=== PATIENT | female | born 1960 | race Caucasian/White ===

== ENCOUNTER → 2020-02-01 07:19 | Outpatient (CLI) | payer OTHER, SELFPAY ==
[2020-02-01 08:52] LABS: Alanine Aminotransferase 18 IU/L (<35); Albumin 4.3 g/dL (3.5-5.0); Albumin Globulin Ratio 1.7 (1.0-2.8); Alkaline Phosphatase 105 U/L (38-126); Aspartate Aminotransferase 25 IU/L (14-36); BUN Creatinine Ratio 26.2 (6-22); Bilirubin Total 0.5 mg/dL (0.2-1.3); Blood Urea Nitrogen 22 mg/dL (7-17); Calcium 9.7 mg/dL (8.4-10.2); Carbon Dioxide 29 mmol/L (22-32); Chloride 106 mmol/L (98-107); Cholesterol 227 mg/dL (140-199); Estimated Glomerular Filt Rate > 60.0 mL/min (>60); Globulin 2.5 g/dL (1.7-4.1); Glucose 82 mg/dL (80-110); HDL Cholesterol 86 mg/dL (40-60); HEMOLYSIS < 15 (0-50); LDL Cholesterol Calculated 130 mg/dL (<100); Sodium 140 mmol/L (137-145); Total Protein 6.8 g/dL (6.3-8.2); Triglycerides 56 mg/dL (35-150)
[2020-02-01 08:56] LABS: Potassium 5.4 mmol/L (3.4-5.1)
[2020-02-01 09:25] LABS: TSH w/ Reflex to FT4 2.19 uIU/mL (0.47-4.68)
[2020-02-02 08:34] LABS: Var-Zoster Immunity Screen 2969 index (Immune >165)
== END ==
PROVIDERS: Family Provider Internal Medicine; PCP Internal Medicine; Referring Provider Internal Medicine; Visit Provider Internal Medicine
DX: M17.0 Bilateral primary osteoarthritis of knee (principal); Z13.220 Encounter for screening for lipoid disorders; Z86.39 Personal history of other endocrine, nutritional and metabolic disease; R21 Rash and other nonspecific skin eruption
CPT/HCPCS: 36415; 80053; 80061; 84443; 86787

== ENCOUNTER → 2020-03-15 12:08 | Outpatient (CLI) | payer OTHER, SELFPAY ==
[2020-03-15 12:58] LABS: Add Manual Diff / Slide Review NO; Basophils Absolute Auto 100 /uL (0-100); Eosinophils Absolute Auto 200 /uL (0-450); Eosinophils Percent Auto 2.8 % (2-4); Hematocrit 42.5 % (36-46); Hemoglobin 14.3 g/dL (12.0-16.0); Lymphocytes Absolute Auto 2300 /uL (1100-4500); Mean Corpuscular HGB Conc 33.7 % (30-36); Mean Corpuscular Hemoglobin 31.4 PG (26-34); Mean Corpuscular Volume 93.3 fL (80-100); Monocytes Absolute Auto 500 /uL (0-900); Monocytes Percent Auto 9.1 % (3-14); Neutrophils Absolute Auto 2900 /uL (1500-7000); Neutrophils Percent Auto 48.1 % (50-75); Platelet Count 328 X10^3/uL (150-400); Red Blood Cell Count 4.55 X10^6/uL (4.0-5.2); Red Cell Distribution Width 13.7 % (11.6-14.8)
[2020-03-15 13:33] LABS: Carbon Dioxide 28 mmol/L (22-32); Chloride 105 mmol/L (98-107); HEMOLYSIS < 15 (0-50); Potassium 4.3 mmol/L (3.4-5.1); Sodium 139 mmol/L (137-145)
== END ==
PROVIDERS: Family Provider Internal Medicine; PCP Internal Medicine; Referring Provider Orthopaedic Surgery; Visit Provider Orthopaedic Surgery
DX: Z01.818 Encounter for other preprocedural examination (principal); Z01.812 Encounter for preprocedural laboratory examination
CPT/HCPCS: 36415; 80051; 85025; 93005

== ENCOUNTER → 2020-04-07 08:50 | Outpatient (CLI) | payer OTHER, SELFPAY ==
[2020-04-09 01:05] LABS: COVID19 Sendout Not Detected (Not Detect)
== END ==
PROVIDERS: Family Provider Internal Medicine; PCP Internal Medicine; Visit Provider Physician Assistant
DX: Z11.59 Encounter for screening for other viral diseases (principal)
CPT/HCPCS: 87635

== ENCOUNTER 2020-04-10 12:51 | Day surgery (SDC) | payer OTHER, SELFPAY ==
[2020-04-02 08:50] VITALS: BMI 21.8
[2020-04-10] VITALS (13 sets, daily range): BP systolic 100–144; BP diastolic 55–78; PULSE 62–76; RESP 13–18; TEMP 35.9–37.1; O2SAT 95–100; BMI 21.8
--- NOTE | 2020-04-10 08:00 | DI.RAD.S_ITS ---
PROCEDURE: XR KNEE LT 1TO2V INDICATIONS: TKA. TECHNIQUE: Two view(s) of the knee acquired. COMPARISON: None. FINDINGS: Bones: Patient is status post knee joint arthroplasty. Hardware components are in expected positions. Visualized bony structures are intact. Soft tissues: Overlying postoperative changes are noted. IMPRESSION: Left total knee arthroplasty, normal alignment established. Dictated by: Francisco Velasquez M.D. on 04/10/2020 at 17:47 Approved by: Francisco Velasquez M.D. on 04/10/2020 at 17:47
[2020-04-10] MEDS: LACTATED RINGERS 1,000 ML 42 ML IV ×2 (13:20→16:46)
[2020-04-10] MEDS: PREGABALIN 75 MG CAPSULE PO (13:20)
[2020-04-10] MEDS: ACETAMINOPHEN 325 MG TABLET 975 MG PO (13:20)
[2020-04-10] MEDS: CELECOXIB 200 MG CAPSULE PO (13:20)
--- NOTE | 2020-04-10 14:12 | PM.PREOP ---
Pre-operative Note COVID-19 COVID-19 status: Negative Result date/Date tested (Pos, Neg/Pending): 04/08/20 Interval Note History & Physical reviewed/Exam performed by Physician: Yes Changes to H&P: No
--- NOTE | 2020-04-10 14:12 | PM.OP.1 ---
Operative Date/Time/Diagnoses Date of procedure: 04/10/20 Time of procedure: 17:08 Pre-op diagnosis: Left knee osteoarthritis Post-op diagnosis: same Procedure & Clinicians Procedure: Left total knee arthroplasty Same procedure as scheduled: Yes Indications: The patient presents today for total knee arthroplasty after failure of conservative treatment. The nature of the procedure including the risks and benefits, alternatives, postoperative course and expected outcome were discussed and all questions answered. Consent was obtained. Operative site confirmed and marked. Surgeon: Darrel Castañeda [employer] Instructor: Garrick Powers Anesthesia Type: General, Spinal and Local Operative Notes Findings: The patients bone was very soft. The stem was used in the tibia to increase the stability. After the initial cuts in the distal femur and proximal tibia the knee was tight both in flexion and extension. The knee was also tighter laterally. The lateral capsule was released using a pie crust type technique with a 15 blade. The femoral cut was also redone cutting in 7? of valgus instead of 6. This balanced the knee medially and laterally. The knee was tighter in extension than flexion. Another 2 mm was cut both from the distal femur and proximal tibia. This nicely balanced the knee in flexion extension overall but there was still some increased laxity medially both in flexion and extension. Once the components were cemented into place the knee was trialed with both constrained and nonconstrained tibial trays. It was felt that the constrained tray was too tight so the nonconstrained tray was used. The tibia was quite thin and concave. The most minimal cut was made. There is approximately 13 mm of remaining bone thickness. The patellar tracked nicely once the tourniquet was down. Closure Type: primary Specimen(s): none sent Prosthetic devices, grafts, tissues, transplants, or devices: [employer] BCS: 9 femoral component, 6 tibial component with a 16 mm x 100 mm stem, 9 mm BCS polyethylene tray and 32 x 9 mm round patella Applied: implant(s) Estimated Blood Loss (mL): 5 Blood products transfused: none Tourniquet time (min): 91 Procedure in detail: The patient was taken to the operative suite and placed under anesthesia. The patient was given prophylactic antibiotics prior to surgery. [The patient was also given tranexamic acid, 1 g, just prior to surgery for postoperative hemostasis.] The lateral knee was prepped and the joint injected with 20 mL of 1% Lidocaine with epinephrine. The knee was then prepped and draped in usual sterile fashion. The leg was exsanguinated with an Esmarch dressing and the tourniquet raised to [250] torr. A 15 cm anterior incision was made. Next a medial trivector arthrotomy was made. The extensor mechanism was marked to ensure accurate repair. Initial exposing dissection was carried out medially and laterally. The knee was then flexed and the intramedullary femoral guide salvador placed. The distal femoral cut was made in [6]? of valgus at the +[0] position. The femoral size was measured and the appropriate cutting block was then placed and the anterior, posterior and chamfer cuts made. The intramedullary tibial alignment salvador was then placed. The tibial cut was made removing about 10 mm of bone from both the lateral and medial sides. Flexion extension gaps were checked. See balancing in the findings above. The soft tissues were then injected with a combination of 20 mL of half percent Marcaine with epinephrine and 20 mL of Exparel. The trial components were then placed. The knee was then extended and the patellar thickness was measured and a cut made removing a minimal amount of bone as the patella was concave and quite thin. The patella was then sized and drilled. Some excess lateral bone was excised and the patellofemoral ligament released. [The knee went into full extension and flexion beyond 130?]. There was good medial-lateral balance throughout motion. The knee was still somewhat looser medially both in flexion and extension but this was felt to be acceptable with a normal polyethylene tray. Patellar tracking was [excellent]. The trial components were removed and the knee was cleansed with Pulsavac irrigation and dried. The final components were cemented with high viscosity vacuum mixed bone cement with antibiotics. The joint was filled with a dilute Betadine solution. The knee was held in extension and the patellar clamped until the cement was adequately cured. The knee was then irrigated. The extensor mechanism was closed with 5 interrupted #1 Vicryl sutures and a running Quill suture at approximately 90 degrees of flexion. The joint was then injected with a combination of 1 g of tranexamic acid and 20 mL of quarter percent Marcaine with epinephrine. The subcutaneous tissue was closed with 2 0 Vicryl. The skin was closed with absorbable subcuticular sutures and surgical adhesive. An [Aquacel dressing] and Vamsi wrap were then applied. The patient tolerated the procedure well and was returned to recovery room in good condition. Complications: none Post-operative Condition: stable Disposition: PACU Plan for aftercare: [facility] Protocol.
[2020-04-10] MEDS: CLINDAMYCIN 600 MG/50 ML PIGGYBACK 50 MG IV (14:55)
--- NOTE | 2020-04-10 15:23 | SUR.OPER ---
Supine on padded OR bed. Pillow under head, arms secured on padded armboards <90 degree abduction. Safety belt across torso. Non-operative leg secured with tape over blanket over lower leg. Operative leg secured in DeMayo/Casa positioner. Foam padded brace at thigh of operative leg.
[2020-04-10] MEDS: LIDOCAINE 1% W/EPI 20 ML INJ (15:32)
[2020-04-10] MEDS: BUPIVACAINE 0.25% W/ EPI (PF) 20 ML, TRANEXAMIC ACID 1,000 MG, SODIUM CHLORIDE 0.9% 10 ML INJ (15:33)
[2020-04-10] MEDS: BUPIVACAINE 0.25% W/ EPI (PF) 40 ML, BUPIVACAINE LIPOSOME 266 MG, SODIUM CHLORIDE 0.9% ... INJ (15:34)
[2020-04-10] MEDS: SODIUM CHLORIDE IRRIG SOLUTION 250 ML, POVIDONE-IODINE SPONGE STICKS 1 APPLIC IRR (15:35)
--- NOTE | 2020-04-10 17:58 | SUR.PHASEI ---
arrived to PACU sleeping, slept through L Knee x-ray, LLE elevated after x-ray; ice pack on upon arrival. Resp even and regular
[2020-04-10] MEDS: OXYCODONE IR 5 MG TABLET PO ×2 (18:28→21:29)
--- NOTE | 2020-04-10 18:28 | SUR.PHASEI ---
174 late entry Woke up, started talking, drowsy. Denied pain/nausea. Ice chips given. VSS 175 Report given to Jaz Bauman RN in lieu of KEREN Hogan. Apple juice given. Stated that she is aware of her knee but that it is not in pain. 1083 to room 215. Pt transferred herself into the bed. Began complaining of pain in the elevator, stated that it was a 3/10. Coming out of the elevator, she stated that it 'is heading towards a 4.' Bed down and locked, call light within reach, SCDs on. Beverage and snack given to her by her . RN informed that she will need to be medicated when possible. Pt awake/drowsy, eyes wide open, talking/oriented. Clothing bag to the room.
[2020-04-10] MEDS: HYDROMORPHONE 0.5 MG INJ 0.2 MG IV ×2 (18:33→19:52)
--- NOTE | 2020-04-10 18:56 | PC.NURSE ---
1809- Pt to room from PACU. Able to move self over from stretcher to bed. Pain increased with activity. Rating 5 of 10. Restless in bed, grabbing siderails. Stating that she thought she was suppose to get a pain cocktail in her knee. States it is not working. Discussed pain control. Pt continues to report pain 5 and climbing. One percolone given. Continues to be restless. 0.2 mg Dilaudid IVP. Attempt to orient to room and routine, will need reinforcement when pain is better controlled.
[2020-04-10] MEDS: DOCUSATE 100 MG CAPSULE PO (21:29)
[2020-04-10] MEDS: IBUPROFEN 400 MG TABLET PO (21:29)
[2020-04-10] MEDS: ASPIRIN EC 81 MG TABLET PO (21:29)
[2020-04-10] MEDS: ACETAMINOPHEN 325 MG TABLET 650 MG PO (21:29)
[2020-04-10] MEDS: CLINDAMYCIN 900 MG/50 ML PIGGYBACK 50 MG IV (23:02)
[2020-04-11] MEDS: IBUPROFEN 400 MG TABLET PO ×4 (00:10→12:25)
[2020-04-11 01:11] VITALS: BP 116/65; PULSE 74; RESP 18; TEMP 36.8; O2SAT 97
[2020-04-11] MEDS: OXYCODONE IR 10 MG TABLET PO ×2 (01:35→08:27)
[2020-04-11 05:26] VITALS: BP 102/52; PULSE 70; RESP 16; TEMP 37.1; O2SAT 97
[2020-04-11 06:07] LABS: Hematocrit 34.5 % (36-46); Hemoglobin 11.7 g/dL (12.0-16.0)
[2020-04-11] MEDS: CLINDAMYCIN 900 MG/50 ML PIGGYBACK 50 MG IV (06:13)
--- NOTE | 2020-04-11 07:56 | PM.PN.1 ---
Subjective Subjective Date Patient Seen: 04/11/20 Time Patient Seen: 07:56 Interval history: Patient is POD#1 s/p left TKA with Dr. Castañeda. Doing well postop. She has been out of bed to the commode but has not worked with PT yet. Voiding appropriately. Exam Vital Signs (past 8 hours): - 04/11/20 01:11 04/11/20 05:26 Temperature 98.2 F 98.7 F Pulse Rate 74 70 Respiratory Rate 18 16 Blood Pressure 116/65 102/52 L Pulse Oximetry 97 97 Oxygen Delivery Method Room Air Oxygen Flow Rate 0 Narrative Exam Narrative: 59 year old female resting in bed, alert and oriented in no acute distress. DEBBIE wrap in place. Underlying Aquacel is CDI. Patient able to perform straight leg raise. Calves are soft, nontender bilaterally. Objective Labs Result Diagrams: 04/11/20 05:25 Labs: Laboratory Results - last 24 hr 04/11/20 05:25 Hgb 11.7 L Hct 34.5 L Assessment & Plan Assessment & Plan narrative: Patient is POD#1 left knee. Doing well postop. Pain controlled with oxycodone, she was given script preoperatively. She mobilized well with PT today. She has good family support at home. She will follow up in 2 weeks outpatient as scheduled. Discharge to home later today.
[2020-04-11] MEDS: ASPIRIN EC 81 MG TABLET PO (08:26)
[2020-04-11] MEDS: DOCUSATE 100 MG CAPSULE PO (08:26)
[2020-04-11] MEDS: ACETAMINOPHEN 325 MG TABLET 650 MG PO ×2 (08:27→12:25)
[2020-04-11 08:43] VITALS: BP 109/77; PULSE 58; RESP 16; TEMP 36.9; O2SAT 99
--- NOTE | 2020-04-11 09:51 | PT.IIE ---
Current Diagnoses Unilateral primary osteoarthritis, left knee (04/10/20) Surgery Performed Operation Date: 04/10/20 14:30 Actual Procedures p Total Knee Arthroplasty(Left) - Darrel Castañeda MD Surgical History (Last Updated 04/02/20 @ 12:07 by Daya Ward RN) History of arthroscopic knee surgery (Resolved ~01/2009) History of colonoscopy (Resolved ~2018) History of tonsillectomy (Resolved) Medical History (Last Updated 04/02/20 @ 12:11 by Daya Ward RN) Anxiety (Chronic) Asthma (Acute) Fracture (Resolved) Hammertoes of both feet (Chronic) HSV (herpes simplex virus) infection (Chronic ~1989) Lactose intolerance (Acute) Osteoarthritis (Acute) Osteoarthritis of knees, bilateral (Chronic) Radial fracture (Acute ~2017) Physical Therapy Inpatient Evaluation/Re-Eval M1 PT/OT-IP Prior Functional Status Start: 04/11/20 11:57 Freq: NEEDED Status: Active Protocol: Document 04/11/20 09:51 AB (Rec: 04/11/20 12:09 AB [email or web address]) Medical Review Prior Functional Status Medical History Reviewed Yes Communication able to make needs known Mobility and Gait stated that she is independent with all mobilities and ambulation without AD Social History Household Members significant other Living Arrangements House Number of Floors (Floors) One Floor Number of Stairs To Enter/Railing? 4 steps to enter with R rail ascending Home Environment High Toilet,Walk in Shower, Built-In Shower Seat Home Equipment Front Wheel Walker,Bedside Commode,Hand Held Shower Employment Status Retired M2 PT-IP Current Condition Start: 04/11/20 11:57 Freq: NEEDED Status: Active Protocol: Document 04/11/20 09:51 AB (Rec: 04/11/20 12:09 AB [email or web address]) Physical Therapy Current Condition Current Condition Evaluation Date 04/11/20 Treatment Diagnosis s/p L TKA; difficulty in walking Onset Date 04/10/20 Weight Bearing Status Weight Bearing Status Weight Bear as Tolerated Allowed Weight Bearing Amount (enter % LLE WBAT or #) (%) M3 PT-IP Subjective Start: 04/11/20 11:57 Freq: NEEDED Status: Active Protocol: Document 04/11/20 09:51 AB (Rec: 04/11/20 12:09 AB [email or web address]) Subjective Physical Therapy Visit Type Type Initial Evaluation Visit Start Time 09:51 Visit Stop Time 10:33 Total Visit Minutes 42 Number of DATA ENGINEER Visits 0 Physical Therapy Visit Comments Patient Comments pt is agreeable to do PT Therapy Pain Assessment Pain When Pain Assessed At Rest Pain Present Pain Present Pain Reported Location Left Leg Intensity 2 Scale Used Numeric (0 - 10) Pain Management Techniques Distraction,Modification of Treatment,Re-positioning, Timing of Activity with Medications M4 PT-IP Mobility and Gait Start: 04/11/20 11:57 Freq: NEEDED Status: Active Protocol: Document 04/11/20 09:51 AB (Rec: 04/11/20 12:09 AB [email or web address]) PT-Bed Mobility Assessment Supine to Sit Supine to Sit Standby Assistance Sit to Supine Sit to Supine Standby Assistance Scooting Scooting to Edge of Bed Standby Assistance PT-Transfer Assessment Sit to and From Stand Sit to and from Stand Contact Guard Assistance, Minimal Assistance,1 Person Assistance,Use of Upper Extremities Equipment Transfer Assistive Device Gait Belt,Front Wheeled Walker Orthotic/Prosthetic Devices or Brace: No Transfers Transfer Destination Bed,Chair Transfer Technique ambulated using FWW Transfer Ability Level of Assist Contact Guard Assistance, Minimal Assistance,Use of Upper Extremities Comments Mobility Comments BP sitting on chair: 116/64. completed sit to stand from chair CGA to min A and completed step transfer to bed using FWW SBA. completed sit <>supine SBA. agreed to walk and do stair. completed ambulation in the hallway ~ 50 ft and c/o dizziness and nausea. assisted pt back to her room on w/c. BP checked: 104/56. pt requested to go back to bed and completed step transfer to bed using FWW CGA . completed sit to supine SBA . positioned pt on bed. call light and table placed within reach. scheduled 130 pm tx session with significant other later today for caregiver training. Gait Assessment Gait Gait Assistance Required: Contact Guard Assist,Minimum Assistance,1 Person Assist Distance (Feet) 50 Able to Maintain Weight Bearing Status Yes During Gait Assistive Devices Assistive Device Gait Belt,Front Wheeled Walker Orthotic/Prosthetic Devices or Brace: No Gait Deviations General Gait Pattern Antalgic,Decreased Stride Length,Decreased Feet Clearance Factors Limiting Gait Function Factors Limiting Gait Function Decreased Activity Tolerance, Decreased Strength,Limited Range of Motion,Pain,Poor Balance,Poor Safety Awareness Comments Gait Comments pls refer to mobility section for details PT-Balance Assessment Sitting Balance and Reactions Static Sitting Balance Ability Normal Dynamic Sitting Balance Ability Normal Standing Balance and Reactions Static Standing Balance Ability Fair Dynamic Standing Balance Ability Fair Device Used FWW M5 PT-IP Objective Assessments Start: 04/11/20 11:57 Freq: NEEDED Status: Active Protocol: Document 04/11/20 09:51 AB (Rec: 04/11/20 12:09 AB [email or web address]) Orientation Orientation/Cognition Level of Alertness Alert Orientation Name,Age,Birthday,Month,Date, Year,Day of Week,Place, Situation Language Function Ability No Deficits Noted Safety Awareness Understands Safety Issues Memory Description No Deficits Noted Gross Range of Motion Lower Extremity ROM Assessment Left Impaired Impairments L knee flexion: ~ 50 deg Strength Lower Extremity Strength Assessment Left Impaired Hip 4/5 Knee 4-/5 Coordination Assessment Gross Coordination Gross Coordination WNL Sensation Assessment Sensation Gross Sensation WNL Muscle Tone Muscle Tone WNL Yes M6 PT-IP Treatment Start: 04/11/20 11:57 Freq: NEEDED Status: Active Protocol: Document 04/11/20 09:51 AB (Rec: 04/11/20 12:09 AB [email or web address]) Physical Therapy Treatment Exercises Exercises Heel Slides Education Education Provided Precautions,Weight Bearing Status,Post-Op Packet,Safety M7 PT-IP Assessment and Plan Start: 04/11/20 11:57 Freq: NEEDED Status: Active Protocol: Document 04/11/20 09:51 AB (Rec: 04/11/20 12:09 AB [email or web address]) PT Summary Assessment and Plan Potential Rehabilitation Potential Good Status of Condition at Evaluation Evolving Summary Impairments Pain,ROM,Strength,Balance, Coordination,Sensation,Tone, Cognition,Bed Mobility, Transfers,Gait,Activity Tolerance Assessment Summary pt requiring CGA to min A with mobility but unable to tolerate much activity this morning due to c/o dizziness/ nausea. set up caregiver training at 130pm today. pt is planning to go home today. will continue to assess progress. pt stated that she is set up for outpt PT. Goals Bed Mobility Goal Independent Transfer Goal Independent,Front Wheeled Walker Gait Goal Independent,Front Wheel Walker Gait Distance 200 Other Goals up/donw 4 steps R rail ascending SBA Days to Meet Goals 5 Frequency of Treatment Frequency Of Treatment Twice a Day Treatment Plan Physical Therapy Treatment Plan Bed Mobility Training,Transfer Training,Gait Training, Therapeutic Exercise,Balance Retraining,Post Op Education, Discharge Planning,Hot or Cold Pack,Neuromuscular Re-ed, Coordination Retraining,Manual Therapy Other Recommendations and Next Treatment caregiver training 130 pm 05/19 Recommendations To Nursing Amount of Assist Needed 1 Person Assist Discharge Recommendations PT Discharge Recommendations Home with Assistance, Outpatient PT Transportation Needs at Discharge Private Vehicle
--- NOTE | 2020-04-11 11:37 | CM.IDA ---
Initial DCP Assessment Note Pt is a 59 yo female, resident of [place], now POD#1 from Lt knee surgery w/ Dr Castañeda PCP: Dylon Mckeon Payer: Nicolas MURCIA Reviewed chart, pt discussed in multidisciplinary rounds this morning. Therapy has cleared pt for return home w/family to assist and pt has planned for home, DC order from Ortho has already been initiated this morning. Met w/patient this morning to introduce role, patient is eager to return home and confirms no needs from this ASSISTANT PROFESSOR OF BIOLOGY. DC once cleared by PT HUNTER Marie
[2020-04-11 12:00] VITALS: BP 104/63; PULSE 58; RESP 16; TEMP 36.7; O2SAT 99
[2020-04-11] MEDS: OXYCODONE IR 5 MG TABLET PO (13:26)
--- NOTE | 2020-04-11 14:09 | PT.IPTN ---
Current Diagnoses Unilateral primary osteoarthritis, left knee (04/10/20) Surgery Performed Operation Date: 04/10/20 14:30 Actual Procedures p Total Knee Arthroplasty(Left) - Darrel Castañeda MD Physical Therapy Treatment Note M2 PT-IP Current Condition Start: 04/11/20 11:57 Freq: NEEDED Status: Active Protocol: Document 04/11/20 09:51 AB (Rec: 04/11/20 12:09 AB [email or web address]) Physical Therapy Current Condition Current Condition Evaluation Date 04/11/20 Treatment Diagnosis s/p L TKA; difficulty in walking Onset Date 04/10/20 Weight Bearing Status Weight Bearing Status Weight Bear as Tolerated Allowed Weight Bearing Amount (enter % LLE WBAT or #) (%) M3 PT-IP Subjective Start: 04/11/20 11:57 Freq: NEEDED Status: Active Protocol: Document 04/11/20 14:09 AB (Rec: 04/11/20 16:26 AB [id number]) Subjective Physical Therapy Visit Type Type Treatment Note Visit Start Time 14:09 Visit Stop Time 14:45 Total Visit Minutes 36 Number of BACTERIOLOGIST SOIL Visits 0 Physical Therapy Visit Comments Patient Comments pt is agreeable to do PT Therapy Pain Assessment Pain When Pain Assessed At Rest Pain Present Pain Present Pain Reported Location Left Leg Intensity 3 Scale Used Numeric (0 - 10) Pain Management Techniques Distraction,Modification of Treatment,Re-positioning, Timing of Activity with Medications M4 PT-IP Mobility and Gait Start: 04/11/20 11:57 Freq: NEEDED Status: Active Protocol: Document 04/11/20 14:09 AB (Rec: 04/11/20 16:26 AB [id number]) PT-Bed Mobility Assessment Supine to Sit Supine to Sit Standby Assistance Sit to Supine Sit to Supine Standby Assistance PT-Transfer Assessment Sit to and From Stand Sit to and from Stand Standby Assistance,Contact Guard Assistance,1 Person Assistance,Use of Upper Extremities Equipment Transfer Assistive Device Gait Belt,Front Wheeled Walker Orthotic/Prosthetic Devices or Brace: No Transfers Transfer Destination Toilet Transfer Technique ambulated using FWW Transfer Ability Level of Assist Contact Guard Assistance,1 Person Assistance,Use of Upper Extremities Comments Mobility Comments pt's significant other in room for caregiver training. pt completed bed mobility SBA. educated caregiver on how to use safety belt and how to assist pt. SO was able to assist pt with sit to stand ambulation in hallway using FWW CGA ~ 125 ft. educated pt on how to do stairs and completed holding on to R rail with B hands and SO was able to assist pt safely. Assisted pt back to her room and ambulated to the toilet using FWW with SO assisting. pt wanting to use the toilet for awhile. Left pt with SO. informed nurse. Gait Assessment Gait Gait Assistance Required: Contact Guard Assist Distance (Feet) 125 Able to Maintain Weight Bearing Status Yes During Gait Assistive Devices Assistive Device Gait Belt,Front Wheeled Walker Orthotic/Prosthetic Devices or Brace: No Gait Deviations General Gait Pattern Antalgic,Decreased Stride Length,Decreased Feet Clearance,Step-to Gait Factors Limiting Gait Function Factors Limiting Gait Function Decreased Activity Tolerance, Decreased Strength,Limited Range of Motion,Pain,Poor Balance,Poor Safety Awareness Stair Climbing Assessment Evaluation Level of Assist On Stairs Minimal Assistance,Moderate Assistance Devices Stair Climbing Assistive Devices Right Railing Technique/Endurance Stair Climbing Direction Ascend and Descend Stair Climbing Technique Step to Step Number of Steps Climbed 3 Stair Climbing Set # Repetitions (reps) 1 Comments Stair Climbing Comments spouse was able to assist pt with stair climbing safely M5 PT-IP Objective Assessments Start: 04/11/20 11:57 Freq: NEEDED Status: Active Protocol: Document 04/11/20 09:51 AB (Rec: 04/11/20 12:09 AB [id number]) Orientation Orientation/Cognition Level of Alertness Alert Orientation Name,Age,Birthday,Month,Date, Year,Day of Week,Place, Situation Language Function Ability No Deficits Noted Safety Awareness Understands Safety Issues Memory Description No Deficits Noted Gross Range of Motion Lower Extremity ROM Assessment Left Impaired Impairments L knee flexion: ~ 50 deg Strength Lower Extremity Strength Assessment Left Impaired Hip 4/5 Knee 4-/5 Coordination Assessment Gross Coordination Gross Coordination WNL Sensation Assessment Sensation Gross Sensation WNL Muscle Tone Muscle Tone WNL Yes M6 PT-IP Treatment Start: 04/11/20 11:57 Freq: NEEDED Status: Active Protocol: Document 04/11/20 14:09 AB (Rec: 04/11/20 16:26 AB [id number]) Physical Therapy Treatment Education Education Provided Precautions,Safety M7 PT-IP Assessment and Plan Start: 04/11/20 11:57 Freq: NEEDED Status: Active Protocol: Document 04/11/20 14:09 AB (Rec: 04/11/20 16:26 AB [id number]) PT Summary Assessment and Plan Potential Rehabilitation Potential Good Summary Impairments Pain,ROM,Strength,Balance, Coordination,Sensation, Cognition,Bed Mobility, Transfers,Gait,Activity Tolerance Progress Towards Goals Slow Progress due to Pain Assessment Summary caregiver training conducted and SO was able to assist pt safely. pt is planning to go home today and is set up for outpt PT. Goals Bed Mobility Goal Independent Transfer Goal Independent,Front Wheeled Walker Gait Goal Independent,Front Wheel Walker Gait Distance 200 Other Goals up/donw 4 steps R rail ascending SBA Days to Meet Goals 5 Frequency of Treatment Frequency Of Treatment Twice a Day Treatment Plan Physical Therapy Treatment Plan Bed Mobility Training,Transfer Training,Gait Training, Therapeutic Exercise,Balance Retraining,Post Op Education, Discharge Planning,Hot or Cold Pack,Neuromuscular Re-ed, Coordination Retraining,Manual Therapy Recommendations To Nursing Amount of Assist Needed 1 Person Assist Discharge Recommendations PT Discharge Recommendations Home with Assistance, Outpatient PT Transportation Needs at Discharge Private Vehicle
== END 2020-04-11 15:15 | disposition home or self-care (01) ==
LOC: OR 12:51 → AC 12:52
PROVIDERS: Family Provider Internal Medicine; PCP Internal Medicine; Referring Provider Internal Medicine; Visit Provider Orthopaedic Surgery
PROC: 0SRD0JZ Replacement of Left Knee Joint with Synthetic Substitute, Open Approach (ICD-10-PCS; CPT 27447; principal; 2020-04-10 14:30)
DX: M17.12 Unilateral primary osteoarthritis, left knee (principal)
CPT/HCPCS: 27447; 36415; 73560; 85014; 85018; 97162; 97530; C1776; C9290; J1100; J1170; J2250; J2405; J2704; J3010

== ENCOUNTER → 2020-11-27 07:56 | Outpatient (CLI) | payer OTHER, SELFPAY ==
[2020-04-10 19:10] VITALS: BMI 21.8
[2020-11-27 09:47] LABS: Add Manual Diff / Slide Review NO; Basophils Absolute Auto 100 /uL (0-100); Basophils Percent Auto 1.3 % (0-2); Eosinophils Absolute Auto 200 /uL (0-450); Eosinophils Percent Auto 4.3 % (2-4); Hematocrit 40.8 % (36-46); Hemoglobin 13.9 g/dL (12.0-16.0); Lymphocytes Absolute Auto 1600 /uL (1100-4500); Lymphocytes Percent Auto 38.2 % (25-40); Mean Corpuscular HGB Conc 34.1 % (30-36); Mean Corpuscular Volume 93.8 fL (80-100); Monocytes Absolute Auto 400 /uL (0-900); Monocytes Percent Auto 10.8 % (3-14); Neutrophils Absolute Auto 1900 /uL (1500-7000); Neutrophils Percent Auto 45.4 % (50-75); Platelet Count 307 X10^3/uL (150-400); Red Blood Cell Count 4.35 X10^6/uL (4.0-5.2); Red Cell Distribution Width 13.9 % (11.6-14.8); White Blood Cell Count 4.2 X10^3/uL (4.5-11.0)
[2020-11-27 10:00] LABS: Carbon Dioxide 25 mmol/L (22-32); Chloride 107 mmol/L (98-107); HEMOLYSIS < 15 (0-50); Potassium 4.3 mmol/L (3.4-5.1); Sodium 140 mmol/L (137-145)
== END ==
PROVIDERS: Family Provider Internal Medicine; PCP Internal Medicine; Referring Provider Orthopaedic Surgery; Visit Provider Orthopaedic Surgery
DX: Z01.812 Encounter for preprocedural laboratory examination (principal); Z01.818 Encounter for other preprocedural examination
CPT/HCPCS: 36415; 80051; 85025; 93005

== ENCOUNTER → 2020-12-21 08:58 | Outpatient (CLI) | payer OTHER, SELFPAY ==
[2020-04-10 19:10] VITALS: BMI 21.8
[2020-12-21 12:02] LABS: COVID19 -Nasal RAPID Negative (Negative)
== END ==
PROVIDERS: Family Provider Internal Medicine; PCP Internal Medicine; Visit Provider Physician Assistant
DX: Z01.812 Encounter for preprocedural laboratory examination (principal); Z20.822 Contact with and (suspected) exposure to COVID-19
CPT/HCPCS: 87635

== ENCOUNTER 2020-12-23 08:16 | Day surgery (SDC) | payer OTHER, SELFPAY ==
[2020-04-10 19:10] VITALS: BMI 21.8
[2020-12-17 11:43] VITALS: BMI 22.1
[2020-12-23] VITALS (14 sets, daily range): BP systolic 91–142; BP diastolic 48–85; PULSE 48–77; RESP 12–19; TEMP 35.9–36.8; O2SAT 94–100; BMI 22.1
[2020-12-23] MEDS: LACTATED RINGERS 1,000 ML 42 ML IV ×2 (08:49→11:46)
[2020-12-23] MEDS: ACETAMINOPHEN 325 MG TABLET 975 MG PO (08:50)
[2020-12-23] MEDS: CELECOXIB 200 MG CAPSULE 400 MG PO (08:51)
[2020-12-23] MEDS: GABAPENTIN 300 MG CAPSULE PO (08:51)
--- NOTE | 2020-12-23 10:09 | PM.PREOP ---
Pre-operative Note COVID-19 COVID-19 status: Negative Interval Note History & Physical reviewed/Exam performed by Physician: Yes Changes to H&P: No
--- NOTE | 2020-12-23 10:09 | PM.OP.1 ---
Operative Date/Time/Diagnoses Date of procedure: 12/23/20 Time of procedure: 13:07 Pre-op diagnosis: Right knee osteoarthritis Post-op diagnosis: same Procedure & Clinicians Procedure: Right total knee arthroplasty Same procedure as scheduled: Yes Indications: The patient presents today for total knee arthroplasty after failure of conservative treatment. The nature of the procedure including the risks and benefits, alternatives, postoperative course and expected outcome were discussed and all questions answered. Consent was obtained. Operative site confirmed and marked. Surgeon: Darrel Castañeda Roundhouse Worker: Genet Olsen Anesthesia Type: Spinal and Local Operative Notes Closure Type: primary Specimen(s): none sent Prosthetic devices, grafts, tissues, transplants, or devices: Monk and Nephew Ney BCS: 9 femoral component, 6 tibial component, 9 mm BCS polyethylene tray and 35 x 9 mm round patella Applied: implant(s) Estimated Blood Loss (mL): 10 Tourniquet time (min): 78 Procedure in detail: The patient was taken to the operative suite and placed under anesthesia. The patient was given prophylactic antibiotics prior to surgery. The patient was also given tranexamic acid, 1 g, just prior to surgery for postoperative hemostasis. The lateral knee was prepped and the joint injected with 20 mL of 1% Lidocaine with epinephrine. The knee was then prepped and draped in usual sterile fashion. The leg was exsanguinated with an Esmarch dressing and the tourniquet raised to 250 torr. A 15 cm anterior incision was made. Next a medial trivector arthrotomy was made. The extensor mechanism was marked to ensure accurate repair. Initial exposing dissection was carried out medially and laterally. The knee was then flexed and the intramedullary femoral guide salvador placed. The distal femoral cut was made in 6? of valgus at the +0 position. The intramedullary tibial alignment salvador was then placed. The guide was set to remove approximately 10 mm from the less affected lateral side. The proximal tibial cut was then made with an oscillating saw. Flexion extension gaps were checked. The flexion gap was acceptable but the extension gap was tight. In addition the femur measured a size 9. I could not downsize to an 8 without significant risk of notching. A +4 femoral cut was made. The knee appeared to be well balanced in flexion extension with blocks. The femoral size was measured and the appropriate cutting block was then placed and the anterior, posterior and chamfer cuts made. All meniscus and bony debris was then removed. Posterior femoral osteophytes removed with a curved osteotome. Flexion extension gaps were checked. There is still mild tightness laterally which was corrected with a percutaneous release of the lateral capsule with a 15 blade. The soft tissues were then injected with a combination of 20 mL of half percent Marcaine with epinephrine and 20 mL of Exparel. The trial components were then placed. The knee was then extended and the patellar thickness was measured and a cut made removing approximately 9 mm of bone. The patella was significantly worn but there was still approximately 13-14 mm of patella after resection. The patella was then sized and drilled. Some excess lateral bone was excised and the patellofemoral ligament released. The knee went into full extension and flexion beyond 130?. There was excellent medial-lateral balance throughout motion. Patellar tracking was excellent. The trial components were removed and the knee was cleansed with Pulsavac irrigation and dried. The final components were cemented with high viscosity vacuum mixed bone cement with antibiotics. The joint was filled with a dilute Betadine solution. The knee was held in extension and the patellar clamped until the cement was adequately cured. The knee was then irrigated. The extensor mechanism was closed with 5 interrupted #1 Vicryl sutures and a running Quill suture at approximately 90 degrees of flexion. The joint was then injected with a combination of 1 g of tranexamic acid and 20 mL of quarter percent Marcaine with epinephrine. The subcutaneous tissue was closed with 2 0 Vicryl. The skin was closed with absorbable subcuticular sutures and surgical adhesive. An Aquacel dressing and Vamsi wrap were then applied. The patient tolerated the procedure well and was returned to recovery room in good condition. Complications: none Post-operative Condition: stable Disposition: PACU Plan for aftercare: [facility] Protocol.
--- NOTE | 2020-12-23 10:30 | DI.RAD.S_ITS ---
PROCEDURE: XR KNEE RT 1TO2V INDICATIONS: RT KNEE TECHNIQUE: 2 view(s) of the knee acquired. COMPARISON: [facility], CR, XR KNEE LT 1TO2V, 04/10/2020, 17:24. [facility], CR, XR KNEE ARTHRITIC SERIES BI, 02/15/2020, 10:37. FINDINGS: Bones: Patient is status post knee joint arthroplasty. Hardware components are in expected positions. Visualized bony structures are intact. Soft tissues: Overlying postoperative changes are noted. IMPRESSION: 1. Expected postsurgical changes status post right knee arthroplasty. Dictated by: Darrel Solares M.D. on 12/23/2020 at 17:16 Approved by: Darrel Solares M.D. on 12/23/2020 at 17:16
[2020-12-23] MEDS: CLINDAMYCIN 900 MG/50 ML PIGGYBACK 50 MG IV ×2 (11:12→18:42)
[2020-12-23] MEDS: LIDOCAINE 1% W/EPI 20 ML INJ (11:15)
[2020-12-23] MEDS: TRANEXAMIC ACID 1,000 MG in SODIUM CHLORIDE 0.9% 100 ML 200 ML IV (11:21)
--- NOTE | 2020-12-23 11:29 | SUR.OPER ---
Supine on padded OR bed. Pillow under head, arms secured on padded armboards <90 degree abduction. Safety belt across torso. Non-operative leg secured with tape over blanket over lower leg. Operative leg secured in DeMayo/Casa/Nathe positioner. Foam padded brace at thigh of operative leg.
[2020-12-23] MEDS: BUPIVACAINE 0.25% W/ EPI (PF) 40 ML, BUPIVACAINE LIPOSOME 266 MG, SODIUM CHLORIDE 0.9% ... INJ (11:37)
[2020-12-23] MEDS: BUPIVACAINE 0.25% W/ EPI (PF) 20 ML, TRANEXAMIC ACID 1,000 MG, SODIUM CHLORIDE 0.9% 10 ML INJ (11:40)
[2020-12-23] MEDS: SODIUM CHLORIDE IRRIG SOLUTION 250 ML, POVIDONE-IODINE SPONGE STICKS 1 APPLIC IRR (11:44)
[2020-12-23] MEDS: ONDANSETRON 4 MG/2 ML INJ IV (13:29)
[2020-12-23] MEDS: LACTATED RINGERS 1,000 ML 100 ML IV (14:21)
--- NOTE | 2020-12-23 14:58 | PC.ADMIT ---
[email or web address] [facility] Admission Note: The patient,Brenda Patrick,60 y/o, was given written information regarding hospital policies, unit procedures and contact persons. Patient's smoking status: Never smoker. Vital Signs - 8 hr 12/23/20 09:02 12/23/20 13:06 12/23/20 13:10 Temperature 98.3 F 97.0 F L Pulse Rate 58 L 77 65 Respiratory Rate 14 19 14 Blood Pressure 139/85 106/54 L 98/48 L Pulse Oximetry 97 95 94 12/23/20 13:15 12/23/20 13:20 12/23/20 13:35 Temperature 97.1 F L Pulse Rate 57 L 56 L 60 Respiratory Rate 16 12 12 Blood Pressure 101/60 106/54 L 102/58 L Pulse Oximetry 96 96 94 12/23/20 13:45 12/23/20 13:50 12/23/20 14:20 Temperature 97.6 F 96.9 F L 96.9 F L Pulse Rate 60 60 54 L Respiratory Rate 18 18 16 Blood Pressure 111/57 L 91/60 112/64 Pulse Oximetry 95 97 98 12/23/20 14:50 Temperature 96.7 F L Pulse Rate 52 L Respiratory Rate 17 Blood Pressure 104/61 Pulse Oximetry 98 Patient admitted to room 213. Arrived via bed from PACU, escorted by TABLE CUT OFF SAW OPERATOR. Spouse in room at time of arrival. Patient states that her RLE is still numb, not tingling, and she does not have any pain right now. Patient oriented to room, call light within reach, bed in lowest position.
[2020-12-23] MEDS: IBUPROFEN 400 MG TABLET PO ×2 (16:06→20:50)
--- NOTE | 2020-12-23 16:51 | PT-IP ANOTE ---
Met with pt to initiate PT evaluation, gather PLOF. Pt was still numb in her RLE. Deferred PT until 12/24 AM.
[2020-12-23] MEDS: ACETAMINOPHEN 325 MG TABLET 650 MG PO (20:49)
[2020-12-23] MEDS: DOCUSATE 100 MG CAPSULE PO (20:50)
[2020-12-23] MEDS: ASPIRIN EC 81 MG TABLET PO (20:50)
--- NOTE | 2020-12-23 22:58 | PC.NURSE ---
pt ambulated to the bathroom. sba-fww. pt voiding. pain controlled with tylenol. voiding ok.
--- NOTE | 2020-12-24 00:50 | PC.NURSE ---
Addendum entered by Miranda Salgado R.N. 12/24/20 06:16: Patient denies any further dizziness this morning. Walked into bathroom with SBA + walker. Has denied pain all night and declined scheduled Ibuprofen but now states knee is waking up and rates severity as 4/10 but only wanted Ibuprofen so 0500 dose given at this time. Is now passing flatus. Original Note: Patient is alert and oriented. Breath sounds CTA with RA sat of 100%; on continuous pulse oximetry per epidural orders. HRR but bradycardic in upper 40's to low 50's which patient states is her normal. Does complain of mild dizziness when getting out of bed but BP good at 124/76. Denies nausea. BT hypoactive and patient denies flatus as yet. Is voiding frequently so declines to have additional IVF hung so is currently saline locked; encouraged to drink fluids. Is able to move herself in bed. Up to bathroom/BSC with walker and SBA. Denies pain; refused scheduled Ibuprofen. Aquacel dressing covered with dedrick wrap to right knee is CDI. Still has some numbness in toes of right foot otherwise CMS is intact. Was wearing bilateral calf SCD's but now requesting they be left off so reminded to ankle wave. Fall risk score is high and bed alarm is activated.
[2020-12-24] MEDS: CLINDAMYCIN 900 MG/50 ML PIGGYBACK 50 MG IV (03:01)
[2020-12-24] MEDS: SODIUM CHLORIDE 0.9% FLUSH 10 ML IV ×2 (03:01→08:44)
[2020-12-24 05:35] VITALS: BP 106/68; PULSE 54; RESP 16; TEMP 36.4; O2SAT 99
[2020-12-24 05:46] LABS: Hematocrit 34.3 % (36-46); Hemoglobin 11.6 g/dL (12.0-16.0)
[2020-12-24] MEDS: IBUPROFEN 400 MG TABLET PO ×2 (06:12→08:43)
[2020-12-24 07:48] VITALS: BP 135/71; PULSE 56; RESP 16; TEMP 36.2; O2SAT 97
--- NOTE | 2020-12-24 07:54 | PM.PNPO.1 ---
Subjective Subjective Date Patient Seen: 12/24/20 Time Patient Seen: 07:54 Interval history: Patient's pain is mild. Denies fever or chills. No nausea or vomiting. Exam Vital Signs (past 8 hours): - 12/24/20 05:35 12/24/20 07:48 Temperature 97.6 F 97.2 F L Pulse Rate 54 L 56 L Respiratory Rate 16 16 Blood Pressure 106/68 135/71 Pulse Oximetry 99 97 Oxygen Delivery Method Room Air Oxygen Flow Rate 0 Narrative Exam Narrative: 60-year-old female resting comfortably in bed no apparent distress. Knee dressing is Clean, dry, intact.. Motor functions intact distally. Sensation grossly intact to light touch. Objective Labs Result Diagrams: 12/24/20 05:02 Labs: Laboratory Results - last 24 hr 12/24/20 05:02 Hgb 11.6 L Hct 34.3 L PFSH Medical History (Updated 04/02/20 @ 12:11 by Daya Ward RN) Anxiety Asthma Fracture Hammertoes of both feet HSV (herpes simplex virus) infection (~1989) Lactose intolerance Osteoarthritis Osteoarthritis of knees, bilateral Radial fracture (~2017) Surgical History (Updated 12/17/20 @ 11:46 by Daya Ward RN) History of arthroplasty of left knee (04/10/20) History of arthroscopic knee surgery (~01/2009) History of colonoscopy (~2018) History of tonsillectomy Family History Father Heart disease Mother Dementia Sister Schizophrenia Sister Lung cancer Smoker High cholesterol Mental health problem Grandfather Leukemia Cancer Grandmother Pneumonia Grandfather Heart disease Grandmother Colon cancer Breast cancer Smoker Alcohol drinker Social History household members: significant other Smoking Status: Never smoker alcohol intake: current Assessment & Plan Post-op Postoperative Procedures: Procedures Operation Date: 12/23/20 10:15 Actual Procedure Side Surgeon p Total Knee Arthroplasty Right Darrel Castañeda MD Postoperative plan narrative: Patient progressing as expected status post right total knee arthroplasty. Mobilize with physical therapy. Likely discharge home today. Quality VTE Deep Vein Thrombosis/Pulmonary Embolism Present on Admission: No
[2020-12-24] MEDS: ASPIRIN EC 81 MG TABLET PO (08:43)
[2020-12-24] MEDS: ACETAMINOPHEN 325 MG TABLET 650 MG PO (08:43)
--- NOTE | 2020-12-24 10:18 | PT.IIE ---
Current Diagnoses Bilateral primary osteoarthritis of knee (12/23/20) Surgery Performed Operation Date: 12/23/20 10:15 Actual Procedures p Total Knee Arthroplasty(Right) - Darrel Castañeda MD Medical History (Last Updated 04/02/20 @ 12:11 by Daya Ward RN) Anxiety Asthma Fracture Hammertoes of both feet HSV (herpes simplex virus) infection (~1989) Lactose intolerance Osteoarthritis Osteoarthritis of knees, bilateral Radial fracture (~2017) Physical Therapy Inpatient Evaluation/Re-Eval M1 PT/OT-IP Prior Functional Status Start: 12/23/20 15:39 Freq: NEEDED Status: Discharge Protocol: Document 12/24/20 10:18 AB (Rec: 12/24/20 13:49 AB [id number]) Medical Review Prior Functional Status Medical History Reviewed Yes Communication able to make needs known Mobility and Gait independent with all mobilities and ambulation without AD Activities of Daily Living and IADL's Independent Prior Functional Level (Other details) Pt had L TKA in March 2020 and was satisfied with her rehab. Social History Household Members none Living Arrangements House Number of Floors (Floors) One Floor Number of Stairs To Enter/Railing? 4 VENESSA with right rail ascending Home Environment High Toilet,Walk in Shower, Built-In Shower Seat Home Equipment Front Wheel Walker,Hand Held Shower Employment Status Retired Additional Social History Comment Pt is a retired educator. Her significant other is available to stay with her after surgery and is able to provide all assist. M2 PT-IP Current Condition Start: 12/23/20 15:39 Freq: NEEDED Status: Discharge Protocol: Document 12/24/20 10:18 AB (Rec: 12/24/20 13:49 AB [id number]) Physical Therapy Current Condition Current Condition Evaluation Date 12/24/20 Treatment Diagnosis s/p R TKA; difficulty in walking Onset Date 12/23/20 Weight Bearing Status Weight Bearing Status Weight Bear as Tolerated Allowed Weight Bearing Amount (enter % RLE WBAT or #) (%) M3 PT-IP Subjective Start: 12/23/20 15:39 Freq: NEEDED Status: Discharge Protocol: Document 12/24/20 10:18 AB (Rec: 12/24/20 13:49 AB [id number]) Subjective Physical Therapy Visit Type Type Initial Evaluation Visit Start Time 10:18 Visit Stop Time 10:55 Total Visit Minutes 37 Number of SUPPLY CHAIN INTERN Visits 0 Physical Therapy Visit Comments Patient Comments agreeable to do PT Therapy Pain Assessment Pain When Pain Assessed At Rest Pain Present Pain Present Pain Reported Location Right Knee Intensity 4 Scale Used Numeric (0 - 10) Pain Management Techniques Apply Cold,Modification of Treatment,Re-positioning, Timing of Activity with Medications M4 PT-IP Mobility and Gait Start: 12/23/20 15:39 Freq: NEEDED Status: Discharge Protocol: Document 12/24/20 10:18 AB (Rec: 12/24/20 13:49 AB [id number]) PT-Bed Mobility Assessment Supine to Sit Supine to Sit Standby Assistance Sit to Supine Sit to Supine Standby Assistance PT-Transfer Assessment Sit to and From Stand Sit to and from Stand Standby Assistance Equipment Transfer Assistive Device Gait Belt,Front Wheeled Walker Orthotic/Prosthetic Devices or Brace: No Comments Mobility Comments pt completed supine to sit SBA . ambulated in room using FWW SBA. agreed to walk out in the hallway and completed ~ 125 ft using FWW SBA to occasional CGA and completed up/down steps holding on to R rail with B hands CGA. pt ambulated back to her room using FWW CGA with c/o increasing pain. pt requested to go back to bed. completed sit to supine SBA. positioned pt in bed. call light and table placed within reach. Gait Assessment Gait Gait Assistance Required: Standby Assistance,Contact Guard Assist Distance (Feet) 125 Able to Maintain Weight Bearing Status Yes During Gait Assistive Devices Assistive Device Gait Belt,Front Wheeled Walker Orthotic/Prosthetic Devices or Brace: No Gait Deviations General Gait Pattern Antalgic,Decreased Stride Length,Decreased Feet Clearance,Step-to Gait Factors Limiting Gait Function Factors Limiting Gait Function Decreased Activity Tolerance, Decreased Strength,Limited Range of Motion,Pain,Poor Balance Stair Climbing Assessment Evaluation Level of Assist On Stairs Contact Guard Assistance,1 Person Assistance Devices Stair Climbing Assistive Devices Right Railing Technique/Endurance Stair Climbing Direction Ascend and Descend Stair Climbing Technique Step to Step Number of Steps Climbed 3 Query Text: Stair Climbing Set # Repetitions (reps) 1 PT-Balance Assessment Sitting Balance and Reactions Static Sitting Balance Ability Good Dynamic Sitting Balance Ability Good Standing Balance and Reactions Static Standing Balance Ability Fair Dynamic Standing Balance Ability Fair Device Used FWW M5 PT-IP Objective Assessments Start: 12/23/20 15:39 Freq: NEEDED Status: Discharge Protocol: Document 12/24/20 10:18 AB (Rec: 12/24/20 13:49 AB [id number]) Orientation Orientation/Cognition Level of Alertness Alert Orientation Name,Age,Birthday,Month,Date, Year,Day of Week,Place, Situation Language Function Ability No Deficits Noted Safety Awareness Understands Safety Issues Memory Description No Deficits Noted Gross Range of Motion Lower Extremity ROM Impairments R knee flexion: ~ 70 deg; extension: ~ 15 deg less to 0 Strength Lower Extremity Strength Assessment Right Impaired Hip 4-/5 Knee 4-/5 Muscle Tone Muscle Tone WNL Yes M6 PT-IP Treatment Start: 12/23/20 15:39 Freq: NEEDED Status: Discharge Protocol: Document 12/24/20 10:18 AB (Rec: 12/24/20 13:49 AB [id number]) Physical Therapy Treatment Exercises Exercises Heel Slides Education Education Provided Precautions,Weight Bearing Status,Post-Op Packet,Safety M7 PT-IP Assessment and Plan Start: 12/23/20 15:39 Freq: NEEDED Status: Discharge Protocol: Document 12/24/20 10:18 AB (Rec: 12/24/20 13:49 AB [id number]) PT Summary Assessment and Plan Potential Rehabilitation Potential Good Status of Condition at Evaluation Stable Summary Impairments Pain,ROM,Strength,Balance, Coordination,Sensation,Tone, Cognition,Bed Mobility, Transfers,Gait,Activity Tolerance Assessment Summary pt requiring SBA with transfers and SBA to CGA with ambulation using FWW. pt plans to go home and her significant other will stay with her and assist her as needed. pt is set up for outpt PT. pt may go home when medically stable. Goals Bed Mobility Goal Independent Transfer Goal Independent,Front Wheeled Walker Gait Goal Independent,Front Wheel Walker Gait Distance 200 Other Goals up/down 4 steps R rail SBA Days to Meet Goals 5 Frequency of Treatment Frequency Of Treatment Twice a Day Treatment Plan Physical Therapy Treatment Plan Bed Mobility Training,Transfer Training,Gait Training, Therapeutic Exercise,Balance Retraining,Post Op Education, Discharge Planning,Hot or Cold Pack,Neuromuscular Re-ed, Coordination Retraining,Manual Therapy Precautions Other Precautions WBAT RLE Recommendations To Nursing Amount of Assist Needed 1 Person Assist Discharge Recommendations PT Discharge Recommendations Home with Assistance, Outpatient PT Transportation Needs at Discharge Private Vehicle
--- NOTE | 2020-12-24 10:25 | P.DS_ITS ---
History of Present Illness History of Present Illness Date Patient Seen: 12/24/20 Time Patient Seen: 10:25 Chief complaint: Right Total Knee Arthroplasty *OPB* Narrative: Right knee pain is mild. See progress note. Discharge Providers Provider Discharge Date: 12/24/20 Primary care physician: Dylon Mckeon MD Consults: 12/23/20 13:49 Consult to Discharge Planning Routine Comment: Consult to Physical Therapy Evaluate & Treat Comment: Physician Instructions: postop TKA protocol Consult to Respiratory Therapy Evaluate & Treat Comment: Physician Instructions: Evaluate and treat Discharge provider: Garrick Powers PA-C Summary Hospital Course Discharge Diagnosis: Right knee osteoarthritis Hospital Course: Procedure: Right total knee arthroplasty Same procedure as scheduled: Yes Indications: The patient presents today for total knee arthroplasty after failure of conservative treatment. The nature of the procedure including the risks and benefits, alternatives, postoperative course and expected outcome were discussed and all questions answered. Consent was obtained. Operative site confirmed and marked. Surgeon: Darrel Castañeda Senior Maintenance Machinist: Genet Olsen Anesthesia Type: Spinal and Local Operative Notes Closure Type: primary Specimen(s): none sent Prosthetic devices, grafts, tissues, transplants, or devices: Monk and Nephew Ney BCS: 9 femoral component, 6 tibial component, 9 mm BCS polyethylene tray and 35 x 9 mm round patella Applied: implant(s) Estimated Blood Loss (mL): 10 Tourniquet time (min): 78 Patient admitted to the hospital for right total knee arthroplasty. Patient consented to the same. Patient taken to operating room on December 23, 2020. Patient back in her room and is stable after right total knee arthroplasty. Patient will work with physical therapy this morning. She does have caregiver home to assist her. She has all her meds at home already. Patient will be discharged after physical therapy if safe for home environment. Exam Vital Signs (past 8 hours): - 12/24/20 05:35 12/24/20 07:48 Temperature 97.6 F 97.2 F L Pulse Rate 54 L 56 L Respiratory Rate 16 16 Blood Pressure 106/68 135/71 Pulse Oximetry 99 97 Oxygen Delivery Method Room Air Oxygen Flow Rate 0 Narrative Exam Narrative: See progress note Objective Labs Result Diagrams: 12/24/20 05:02 Labs: Laboratory Results - last 24 hr 12/24/20 05:02 Hgb 11.6 L Hct 34.3 L PFSH Medical History (Updated 04/02/20 @ 12:11 by Daya aWrd RN) Anxiety Asthma Fracture Hammertoes of both feet HSV (herpes simplex virus) infection (~1989) Lactose intolerance Osteoarthritis Osteoarthritis of knees, bilateral Radial fracture (~2017) Surgical History (Updated 12/17/20 @ 11:46 by Daya Ward RN) History of arthroplasty of left knee (04/10/20) History of arthroscopic knee surgery (~01/2009) History of colonoscopy (~2018) History of tonsillectomy Family History Father Heart disease Mother Dementia Sister Schizophrenia Sister Lung cancer Smoker High cholesterol Mental health problem Grandfather Leukemia Cancer Grandmother Pneumonia Grandfather Heart disease Grandmother Colon cancer Breast cancer Smoker Alcohol drinker Social History household members: significant other Smoking Status: Never smoker alcohol intake: current Discharge Assessment & Plan Assessment and Plan Assessment: Patient progressing as expected status post right total knee arthroplasty. Plan of Treatment: Discharge home today in stable condition. Discharge Plan Discharge Plan Patient Disposition: Home Provider Discharge Comment: Discharge home after physical therapy if safe for home environment Discharge orders & Medications Discharge Orders: Discharge (Order); Ordered 12/24/20 Ordered By: Garrick Powers Prescriptions: Continued acetaminophen 325 mg tablet 650 mg PO TID PRN (Reason: Pain) RF: 0 ibuprofen 400 mg tablet 400 mg PO Q4HR PRN (Reason: Pain) RF: 0 valacyclovir 500 mg tablet 500 mg PO DAILY PRN (Reason: Breakout) RF: 0 Follow up/Referrals: Darrel Castañeda MD [Physician] - 2 Weeks Dylon Mckeon MD [Primary Care Provider] - Diet/Activity/Treatments Diet: Regular Activity: Progress activity as tolerated. Start physical therapy within 1 week of surgery. Cold/Heat Therapy: Ice the knee for 10-15 minutes at a time as needed for pain. Other treatments: May use ibuprofen 400 mg and Tylenol 500 mg every 4 hours as needed for pain along with the prescribed narcotic medication. Skin/Wound/Dressing Care Report to your healthcare provider any signs of infection, such as:: chills, fever, increased pain, unusual drainage and unusual redness Dressing: May leave dressing on until follow-up. May shower over dressing. Visit Report/Discharge Packet Instructions: DI for Knee Replacement, DI for Constipation, How to Prevent Falls Stand Alone Forms: Surgery Discharge Discharge Data Primary Care Provider: Dylon Mckeon Attending Provider: Darrel Castañeda VTE Deep Vein Thrombosis/Pulmonary Embolism Present on Admission: No
--- NOTE | 2020-12-24 11:33 | PC.NURSE ---
Discharge: Feels ready to d/c to home. Seen by PA and given d/c instructions. Seen by PT and passed and given their instructions. Is following her total knee precautions. Tolerates diet w/out problems. No use of narcotics, reports acetaminophen and ibuprofen are effective for pain. Instructed - did receive a block and this will wear off over the next couple of days and she may notice increased pain then. Vds w/out diff. Reviewed d/c packet. Pt received her scripts prior to having surgery. Given wound care instructions. Questions answered. Pt d/c home via auto w/spouse.
== END 2020-12-24 11:30 | disposition home or self-care (01) ==
LOC: OR 12:19 → AC 12:21
PROVIDERS: Family Provider Internal Medicine; PCP Internal Medicine; Referring Provider Internal Medicine; Visit Provider Orthopaedic Surgery
PROC: 0SRC0JZ Replacement of Right Knee Joint with Synthetic Substitute, Open Approach (ICD-10-PCS; CPT 27447; principal; 2020-12-23 10:15)
DX: M17.11 Unilateral primary osteoarthritis, right knee (principal)
CPT/HCPCS: 27447; 36415; 73560; 82962; 85014; 85018; 97116; 97161; C1776; C9290; J2250; J2274; J2405; J2704

== ENCOUNTER 2021-01-03 09:45 | Outpatient (RCR) | payer OTHER, SELFPAY ==
[2020-04-10 19:10] VITALS: BMI 21.8
[2020-12-23 14:04] VITALS: BMI 22.1
--- NOTE | 2020-12-27 10:59 | PT.OIE ---
Current Diagnoses Unilateral primary osteoarthritis, right knee (12/27/20) Muscle weakness (generalized) (12/27/20) Other abnormalities of gait and mobility (12/27/20) Past Medical History (Last Updated 04/02/20 @ 12:11 by Daya Ward RN) Anxiety Asthma Fracture Hammertoes of both feet History of arthroplasty of left knee (04/10/20) History of arthroscopic knee surgery (~01/2009) History of colonoscopy (~2018) History of tonsillectomy HSV (herpes simplex virus) infection (~1989) Lactose intolerance Osteoarthritis Osteoarthritis of knees, bilateral Radial fracture (~2017) Past Surgical History (Last Updated 12/17/20 @ 11:46 by Daya Ward RN) History of arthroplasty of left knee (04/10/20) History of arthroscopic knee surgery (~01/2009) History of colonoscopy (~2018) History of tonsillectomy Visit Care Team Role Provider Type Dylon Mckeon MD Family Provider Physician Primary Care Provider Specialty: Internal Medicine Address: [address] [place] [address], [address], [address] Email: [email or web address] Darrel Castañeda MD Attending Provider Physician Referring Provider Specialty: Orthopedic Surgery Address: [address] [place] [address], [id number] Email: [email or web address] Physical Therapy Initial Evaluation PT-OP-A Visit Information Start: 12/27/20 10:33 Freq: Status: Active Protocol: Document 12/27/20 09:45 DCW (Rec: 12/27/20 10:59 DC [id number]) Out-Patient Physical Therapy Visit Information Visit Information Visit Type Initial Evaluation Visit Start Time 09:45 Visit Stop Time 10:30 Total Visit Minutes 45 Visit Number 1 Number of WATER TAXI OPERATOR Visits 0 Evaluation Information Evaluation Date 12/27/20 PT-OP-B Current Condition Start: 12/27/20 10:33 Freq: Status: Active Protocol: Document 12/27/20 09:45 DCW (Rec: 12/27/20 10:59 DCW [id number]) Current Condition History of Current Condition Onset Date 12/23/20 Current Complaints R TKA History of Current Condition Pt is a 60 year old female presenting four days s/p right TKA. Additionally, pt is eight months s/p left TKA, which she notes her recovery seemed to go pretty well. Pt overall feels pretty comfortable with her mobility, transfers, gait, and stair abilities, since she just went through all this a few months ago. Pt has been performing her HEP regularly, especially ankle pumps and extension stretching. Admits she is still unable to perform SLR due to pain and weakness in her right quad. Pt currently most unhappy with the edema in her leg. Pt had her rehab performed for her left knee at [facility] in [place], and is planning to return for her right knee rehab, however her therapist is on vacation, and they did not want to delay the start of therapy, so she is planning to attend 1-2 weeks of PT at this clinic, and then transition back to her usual therapist at a different clinic. PT-OP-C Subjective Start: 12/27/20 10:33 Freq: Status: Active Protocol: Document 12/27/20 09:45 DCW (Rec: 12/27/20 10:59 DCW [id number]) OP-PT Subjective Patient Comments Patient Comments I just had my Oxy about an hour ago, so it feeling better now than it had been. It's just more of an annoyance, it hasn't slipped into actual pain yet, but that would change if I try to get up and actually do something. Patient Questionnaires Lower Extremity Functional Scale LEFS Score 32/80 = 40% OP-PT Pain Assessment Location Right Knee Intensity 5 Scale Used Numeric (0 - 10) Description With Movement PT-OP-E Functional Tests Start: 12/27/20 10:33 Freq: Status: Active Protocol: Document 12/27/20 09:45 DCW (Rec: 12/27/20 10:59 DCW [id number]) Functional Tests Timed Up and Go (TUG) Score 14.84 /c 4WW Comments 3-trial average (16.51, 14.02 , 14.00) TUG Impairment Rating 40 to <60% Impaired (Score 14- 15) PT-OP-G Mobility & Gait Start: 12/27/20 10:33 Freq: Status: Active Protocol: Document 12/27/20 09:45 DCW (Rec: 12/27/20 10:59 DCW [id number]) OP Mobility Evaluation Bed Mobility Supine to and from Sit Independent, struggles lifting surgical LE into bed, but able to do it under own power without UE assistance Transfers Sit to Stand Independent /c 4WW OP Gait Assessment Gait Gait Assistance Required: Independent Able to Maintain Weight Bearing Status Yes During Gait Assistive Devices Assistive Device 4 Wheeled Walker Gait Deviations General Gait Pattern Antalgic,Flexed Trunk Comments Gait Comments Excellent gait 4 days s/p TKA, good stride length, appropriate shanna, mild antalgia, decreased knee extension PT-OP-J Posture/Palpation/Skin Start: 12/27/20 10:33 Freq: Status: Active Protocol: Document 12/27/20 09:45 DCW (Rec: 12/27/20 10:59 DCW [id number]) Skin Assessment Circumference Measurement 3 Location R mid-calf Measurement (Centimeters) 45.1 Comments L = 40.9 2 Location R joint line Measurement (Centimeters) 49.5 Comments L = 44.0 cm 1 Location 10 cm superior to R joint line Measurement (Centimeters) 52.2 Comments L = 45.8 cm PT-OP-K Range of Motion Start: 12/27/20 10:33 Freq: Status: Active Protocol: Document 12/27/20 09:45 DCW (Rec: 12/27/20 10:59 DCW [id number]) Knee Goniometric Range of Motion Knee Left Knee ROM WFL Yes Patient Position Supine Flexion Active (degrees) 122 Extension Active (degrees) 0 Right Knee ROM WFL No Patient Position Supine Flexion Active (degrees) 96 Flexion Passive (degrees) 99 Extension Active (degrees) 14 Extension Passive (degrees) 14 PT-OP-M Strength Start: 12/27/20 10:33 Freq: Status: Active Protocol: Document 12/27/20 09:45 DCW (Rec: 12/27/20 10:59 DCW [id number]) Hip Strength Hip Manual Muscle Testing Right Flexion (L2) 3 Fair Knee Strength Knee Manual Muscle Testing Right Flexion (S2) 2+ Poor+ Extension (L3) 2 Poor PT-OP-R Modalities Start: 12/27/20 10:33 Freq: Status: Active Protocol: Document 12/27/20 09:45 DCW (Rec: 12/27/20 10:59 DCW [id number]) Hot Pack/Cold Pack Treatment Cold Pack Location R knee Patient Position Hooklying Treatment Duration (minutes) 10 PT-OP-T Assessment and Plan Start: 12/27/20 10:33 Freq: Status: Active Protocol: Document 12/27/20 09:45 DCW (Rec: 12/27/20 10:59 DCW [id number]) Physical Therapy Assessment Rehab Potential Rehabilitation Potential Excellent Evaluation Complexity Number of Personal Factors/Comorbidities 1-2 Number of Body Systems Impaired 1-2 Clinical Presentation at Evaluation Stable Impairments Impairments Activity Tolerance,Functional Activities,Functional Mobility ,Gait,Pain,ROM,Soft Tissue Mobility,Strength,Tone Goals Three Impairment Pt completes TUG in average time of 14.84 seconds Short Term Goal (STG) Pt to perform TUG in less than 11 seconds in order to display decreased falls risk STG Duration 01/10/21 Two Impairment Pt unable to lift R LE against gravity Short Term Goal (STG) Pt to demonstrate at least 3/5 MMT in R LE by performing a supine SLR to show improved quad strength, which decreases UE reliance during gait STG Duration 01/10/21 One Impairment Pt presents with antalgic gait using a 4WW that is too short Short Term Goal (STG) Pt to ambulate 200' without antalgia using a properly sized 4WW STG Duration 01/10/21 Assessment Summary Assessment Pt is doing very well four days s/p right TKA. Moderate right-sided edema/joint effusion as expected. Gait at this time looks excellent, mild antalgia using 4WW, therapist was able to reduce antalgia by adjusting height of walker. Pt presents with expected pain and weakness four days post-op, but better than expected R knee ROM of 14 ?-96?. Expect pt to continue to progress over the next 1-2 weeks, after which she will apparently be transferring therapy care to [facility]. Physical Therapy Plan Frequency and Duration Frequency of Treatment 2x/Week Duration of Treatment Three weeks Plan of Care Start Date 12/27/20 Plan of Care End Date 01/17/21 Therapeutic Interventions Therapeutic Interventions Balance Training,Gait Training ,Home Exercise Program,Joint Mobilizations,Manual Therapy, Neuromuscular Re-education, Patient/Caregiver Education, Self-Care/Home Management,Soft Tissue Mobilization, Therapeutic Activities, Therapeutic Exercises Modalities Cold Pack/Ice Massage,Electric Stimulation,Hot Packs Next Visit Focus/Plan Next Note Type Treatment Note Next Visit Plan Strengthening, gait training, ROM
--- NOTE | 2020-12-27 11:00 | PT.OPPOC ---
Physical, Occupational & Speech Therapy At [facility] Current Diagnoses Unilateral primary osteoarthritis, right knee (12/27/20) Muscle weakness (generalized) (12/27/20) Other abnormalities of gait and mobility (12/27/20) Visit Care Team Role Provider Type Dylon Mckeon MD Family Provider Physician Primary Care Provider Specialty: Internal Medicine Address: [address] [place] [address], [facility] [address], [address] Email: [email or web address] Darrel Castañeda MD Attending Provider Physician Referring Provider Specialty: Orthopedic Surgery Address: [address] [place] [address], [id number] Email: [email or web address] Plan Of Care PT-OP-T Assessment and Plan Start: 12/27/20 10:33 Freq: Status: Active Protocol: Document 12/27/20 09:45 DCW (Rec: 12/27/20 10:59 DCW [id number]) Physical Therapy Assessment Rehab Potential Rehabilitation Potential Excellent Evaluation Complexity Number of Personal Factors/Comorbidities 1-2 Number of Body Systems Impaired 1-2 Clinical Presentation at Evaluation Stable Impairments Impairments Activity Tolerance,Functional Activities,Functional Mobility ,Gait,Pain,ROM,Soft Tissue Mobility,Strength,Tone Goals Three Impairment Pt completes TUG in average time of 14.84 seconds Short Term Goal (STG) Pt to perform TUG in less than 11 seconds in order to display decreased falls risk STG Duration 01/10/21 Two Impairment Pt unable to lift R LE against gravity Short Term Goal (STG) Pt to demonstrate at least 3/5 MMT in R LE by performing a supine SLR to show improved quad strength, which decreases UE reliance during gait STG Duration 01/10/21 One Impairment Pt presents with antalgic gait using a 4WW that is too short Short Term Goal (STG) Pt to ambulate 200' without antalgia using a properly sized 4WW STG Duration 01/10/21 Assessment Summary Assessment Pt is doing very well four days s/p right TKA. Moderate right-sided edema/joint effusion as expected. Gait at this time looks excellent, mild antalgia using 4WW, therapist was able to reduce antalgia by adjusting height of walker. Pt presents with expected pain and weakness four days post-op, but better than expected R knee ROM of 14 ?-96?. Expect pt to continue to progress over the next 1-2 weeks, after which she will apparently be transferring therapy care to [facility]. Physical Therapy Plan Frequency and Duration Frequency of Treatment 2x/Week Duration of Treatment Three weeks Plan of Care Start Date 12/27/20 Plan of Care End Date 01/17/21 Therapeutic Interventions Therapeutic Interventions Balance Training,Gait Training ,Home Exercise Program,Joint Mobilizations,Manual Therapy, Neuromuscular Re-education, Patient/Caregiver Education, Self-Care/Home Management,Soft Tissue Mobilization, Therapeutic Activities, Therapeutic Exercises Modalities Cold Pack/Ice Massage,Electric Stimulation,Hot Packs Next Visit Focus/Plan Next Note Type Treatment Note Next Visit Plan Strengthening, gait training, ROM Plan of Care Dates Plan of Care Start Date 12/27/20 Plan of Care End Date 01/17/21 Electronically Signed by: Pradeep Howard, PT 12/27/20 1100 Please Sign and Return: I have reviewed this Plan of Care and certify that the skilled therapy services above are required to meet the patient?s needs. Physician Signature Date Printed Name and Credentials Clinical Instructor Signature Printed Name and Credentials
--- NOTE | 2020-12-31 11:15 | PT.OTN ---
Current Diagnoses Unilateral primary osteoarthritis, right knee (12/31/20) Muscle weakness (generalized) (12/31/20) Other abnormalities of gait and mobility (12/31/20) Physical Therapy Treatment Note PT-OP-A Visit Information Start: 12/27/20 10:33 Freq: Status: Active Protocol: Document 12/31/20 10:30 DCW (Rec: 12/31/20 11:13 DCW [id number]) Out-Patient Physical Therapy Visit Information Visit Information Visit Type Treatment Note Visit Start Time 10:30 Visit Stop Time 11:20 Total Visit Minutes 45 Visit Number 2 Number of PHARMACY GENERAL MANAGER Visits 0 Evaluation Information Evaluation Date 12/27/20 PT-OP-B Current Condition Start: 12/27/20 10:33 Freq: Status: Active Protocol: Document 12/27/20 09:45 DCW (Rec: 12/27/20 10:59 DCW [id number]) Current Condition History of Current Condition Onset Date 12/23/20 Current Complaints R TKA History of Current Condition Pt is a 60 year old female presenting four days s/p right TKA. Additionally, pt is eight months s/p left TKA, which she notes her recovery seemed to go pretty well. Pt overall feels pretty comfortable with her mobility, transfers, gait, and stair abilities, since she just went through all this a few months ago. Pt has been performing her HEP regularly, especially ankle pumps and extension stretching. Admits she is still unable to perform SLR due to pain and weakness in her right quad. Pt currently most unhappy with the edema in her leg. Pt had her rehab performed for her left knee at [facility] in [place], and is planning to return for her right knee rehab, however her therapist is on vacation, and they did not want to delay the start of therapy, so she is planning to attend 1-2 weeks of PT at this clinic, and then transition back to her usual therapist at a different clinic. PT-OP-C Subjective Start: 12/27/20 10:33 Freq: Status: Active Protocol: Document 12/31/20 10:30 DCW (Rec: 12/31/20 11:13 DCW [id number]) OP-PT Subjective Patient Comments Patient Comments Pt notes that Wednesday, her bandage was so full of blood that she was advised to take it off and wrap it in maverick herself. PT-OP-E Functional Tests Start: 12/27/20 10:33 Freq: Status: Active Protocol: Document 12/27/20 09:45 DCW (Rec: 12/27/20 10:59 DCW [id number]) Functional Tests Timed Up and Go (TUG) Score 14.84 /c 4WW Comments 3-trial average (16.51, 14.02 , 14.00) TUG Impairment Rating 40 to <60% Impaired (Score 14- 15) PT-OP-G Mobility & Gait Start: 12/27/20 10:33 Freq: Status: Active Protocol: Document 12/27/20 09:45 DCW (Rec: 12/27/20 10:59 DCW [id number]) OP Mobility Evaluation Bed Mobility Supine to and from Sit Independent, struggles lifting surgical LE into bed, but able to do it under own power without UE assistance Transfers Sit to Stand Independent /c 4WW OP Gait Assessment Gait Gait Assistance Required: Independent Able to Maintain Weight Bearing Status Yes During Gait Assistive Devices Assistive Device 4 Wheeled Walker Gait Deviations General Gait Pattern Antalgic,Flexed Trunk Comments Gait Comments Excellent gait 4 days s/p TKA, good stride length, appropriate shanna, mild antalgia, decreased knee extension PT-OP-J Posture/Palpation/Skin Start: 12/27/20 10:33 Freq: Status: Active Protocol: Document 12/27/20 09:45 DCW (Rec: 12/27/20 10:59 DCW [id number]) Skin Assessment Circumference Measurement 3 Location R mid-calf Measurement (Centimeters) 45.1 Comments L = 40.9 2 Location R joint line Measurement (Centimeters) 49.5 Comments L = 44.0 cm 1 Location 10 cm superior to R joint line Measurement (Centimeters) 52.2 Comments L = 45.8 cm PT-OP-K Range of Motion Start: 12/27/20 10:33 Freq: Status: Active Protocol: Document 12/27/20 09:45 DCW (Rec: 12/27/20 10:59 DCW [id number]) Knee Goniometric Range of Motion Knee Left Knee ROM WFL Yes Patient Position Supine Flexion Active (degrees) 122 Extension Active (degrees) 0 Right Knee ROM WFL No Patient Position Supine Flexion Active (degrees) 96 Flexion Passive (degrees) 99 Extension Active (degrees) 14 Extension Passive (degrees) 14 PT-OP-M Strength Start: 12/27/20 10:33 Freq: Status: Active Protocol: Document 12/27/20 09:45 DCW (Rec: 12/27/20 10:59 DCW [id number]) Hip Strength Hip Manual Muscle Testing Right Flexion (L2) 3 Fair Knee Strength Knee Manual Muscle Testing Right Flexion (S2) 2+ Poor+ Extension (L3) 2 Poor PT-OP-Q Treatments Start: 12/27/20 10:33 Freq: Status: Active Protocol: Document 12/31/20 10:30 DCW (Rec: 12/31/20 11:13 DCW [id number]) Cardio Equipment Recumbent Bicycle Duration (Minutes) 5 Resistance 0 Seat Position 11 Other full rotations Gym Equipment Therapeutic Ball 1 Exercise Details Knee flexion /c strap Ball Size/Color Red - 55 cm Therapeutic Exercises Supine Exercises 3 Supine Exercise Name Knee extension stretch Side right 2 Supine Exercise Name SAQ Side right 1 Supine Exercise Name SLR Side right Standing Exercises 2 Standing Exercise Name Step flexion stretch Side right 1 Standing Exercise Name TKE Side right PT-OP-R Modalities Start: 12/27/20 10:33 Freq: Status: Active Protocol: Document 12/31/20 10:30 DCW (Rec: 12/31/20 11:13 DCW [id number]) Hot Pack/Cold Pack Treatment Cold Pack Location R knee Patient Position Hooklying Treatment Duration (minutes) 10 PT-OP-T Assessment and Plan Start: 12/27/20 10:33 Freq: Status: Active Protocol: Document 12/31/20 10:30 DCW (Rec: 12/31/20 11:15 DCW [id number]) Physical Therapy Assessment Impairments Impairments Activity Tolerance,Functional Activities,Functional Mobility ,Gait,Pain,ROM,Soft Tissue Mobility,Strength,Tone Goals Three Impairment Pt completes TUG in average time of 14.84 seconds Short Term Goal (STG) Pt to perform TUG in less than 11 seconds in order to display decreased falls risk STG Duration 01/10/21 Two Impairment Pt unable to lift R LE against gravity Short Term Goal (STG) Pt to demonstrate at least 3/5 MMT in R LE by performing a supine SLR to show improved quad strength, which decreases UE reliance during gait STG Duration 01/10/21 One Impairment Pt presents with antalgic gait using a 4WW that is too short Short Term Goal (STG) Pt to ambulate 200' without antalgia using a properly sized 4WW STG Duration 01/10/21 Assessment Summary Assessment Pt tolerated treatment very well today, showing great ROM and strength for only 8 days post-op. Pt will attend one more appointment at this facility before transitioning to a different PT clinic. Physical Therapy Plan Frequency and Duration Frequency of Treatment 2x/Week Duration of Treatment Three weeks Plan of Care Start Date 12/27/20 Plan of Care End Date 01/17/21 Therapeutic Interventions Therapeutic Interventions Balance Training,Gait Training ,Home Exercise Program,Joint Mobilizations,Manual Therapy, Neuromuscular Re-education, Patient/Caregiver Education, Self-Care/Home Management,Soft Tissue Mobilization, Therapeutic Activities, Therapeutic Exercises Modalities Cold Pack/Ice Massage,Electric Stimulation,Hot Packs Next Visit Focus/Plan Next Note Type Treatment Note Next Visit Plan Strengthening, gait training, ROM
--- NOTE | 2021-01-03 10:28 | PT.OTN ---
Current Diagnoses Unilateral primary osteoarthritis, right knee (01/03/21) Muscle weakness (generalized) (01/03/21) Other abnormalities of gait and mobility (01/03/21) Physical Therapy Treatment Note PT-OP-A Visit Information Start: 12/27/20 10:33 Freq: Status: Active Protocol: Document 01/03/21 09:45 DCW (Rec: 01/03/21 10:28 DCW [id number]) Out-Patient Physical Therapy Visit Information Visit Information Visit Type Treatment Note Visit Start Time 09:45 Visit Stop Time 10:35 Total Visit Minutes 50 Visit Number 3 Number of DIRECTOR CENTER Visits 0 Evaluation Information Evaluation Date 12/27/20 PT-OP-B Current Condition Start: 12/27/20 10:33 Freq: Status: Active Protocol: Document 12/27/20 09:45 DCW (Rec: 12/27/20 10:59 DCW [id number]) Current Condition History of Current Condition Onset Date 12/23/20 Current Complaints R TKA History of Current Condition Pt is a 60 year old female presenting four days s/p right TKA. Additionally, pt is eight months s/p left TKA, which she notes her recovery seemed to go pretty well. Pt overall feels pretty comfortable with her mobility, transfers, gait, and stair abilities, since she just went through all this a few months ago. Pt has been performing her HEP regularly, especially ankle pumps and extension stretching. Admits she is still unable to perform SLR due to pain and weakness in her right quad. Pt currently most unhappy with the edema in her leg. Pt had her rehab performed for her left knee at [facility] in [place], and is planning to return for her right knee rehab, however her therapist is on vacation, and they did not want to delay the start of therapy, so she is planning to attend 1-2 weeks of PT at this clinic, and then transition back to her usual therapist at a different clinic. PT-OP-C Subjective Start: 12/27/20 10:33 Freq: Status: Active Protocol: Document 01/03/21 09:45 DCW (Rec: 01/03/21 10:28 DCW [id number]) OP-PT Subjective Patient Comments Patient Comments Pt notes her knee has been stiff the past couple of days. Pt got her bandage off earlier this week, and is hoping to transition to a cane or trekking poles soon. PT-OP-E Functional Tests Start: 12/27/20 10:33 Freq: Status: Active Protocol: Document 12/27/20 09:45 DCW (Rec: 12/27/20 10:59 DCW [id number]) Functional Tests Timed Up and Go (TUG) Score 14.84 /c 4WW Comments 3-trial average (16.51, 14.02 , 14.00) TUG Impairment Rating 40 to <60% Impaired (Score 14- 15) PT-OP-G Mobility & Gait Start: 12/27/20 10:33 Freq: Status: Active Protocol: Document 12/27/20 09:45 DCW (Rec: 12/27/20 10:59 DCW [id number]) OP Mobility Evaluation Bed Mobility Supine to and from Sit Independent, struggles lifting surgical LE into bed, but able to do it under own power without UE assistance Transfers Sit to Stand Independent /c 4WW OP Gait Assessment Gait Gait Assistance Required: Independent Able to Maintain Weight Bearing Status Yes During Gait Assistive Devices Assistive Device 4 Wheeled Walker Gait Deviations General Gait Pattern Antalgic,Flexed Trunk Comments Gait Comments Excellent gait 4 days s/p TKA, good stride length, appropriate shanna, mild antalgia, decreased knee extension PT-OP-J Posture/Palpation/Skin Start: 12/27/20 10:33 Freq: Status: Active Protocol: Document 12/27/20 09:45 DCW (Rec: 12/27/20 10:59 DCW [id number]) Skin Assessment Circumference Measurement 3 Location R mid-calf Measurement (Centimeters) 45.1 Comments L = 40.9 2 Location R joint line Measurement (Centimeters) 49.5 Comments L = 44.0 cm 1 Location 10 cm superior to R joint line Measurement (Centimeters) 52.2 Comments L = 45.8 cm PT-OP-K Range of Motion Start: 12/27/20 10:33 Freq: Status: Active Protocol: Document 12/27/20 09:45 DCW (Rec: 12/27/20 10:59 DCW [id number]) Knee Goniometric Range of Motion Knee Left Knee ROM WFL Yes Patient Position Supine Flexion Active (degrees) 122 Extension Active (degrees) 0 Right Knee ROM WFL No Patient Position Supine Flexion Active (degrees) 96 Flexion Passive (degrees) 99 Extension Active (degrees) 14 Extension Passive (degrees) 14 PT-OP-M Strength Start: 12/27/20 10:33 Freq: Status: Active Protocol: Document 12/27/20 09:45 DCW (Rec: 12/27/20 10:59 DCW [id number]) Hip Strength Hip Manual Muscle Testing Right Flexion (L2) 3 Fair Knee Strength Knee Manual Muscle Testing Right Flexion (S2) 2+ Poor+ Extension (L3) 2 Poor PT-OP-Q Treatments Start: 12/27/20 10:33 Freq: Status: Active Protocol: Document 01/03/21 09:45 DCW (Rec: 01/03/21 10:28 DCW [id number]) Cardio Equipment Recumbent Bicycle Duration (Minutes) 5 Resistance 0 Seat Position 11 Gym Equipment Shuttle Recovery Bilateral Squats Resistance 75# Shuttle Recovery Platform Stable Therapeutic Exercises Supine Exercises 3 Supine Exercise Name Knee extension stretch Side right 2 Supine Exercise Name SAQ Side right Resistance 5# 1 Supine Exercise Name SLR Side right Standing Exercises 2 Standing Exercise Name Step flexion stretch Side right 1 Standing Exercise Name TKE Side right Gait Training Gait Activity 1 Description Gait training with SPC, poles PT-OP-R Modalities Start: 12/27/20 10:33 Freq: Status: Active Protocol: Document 01/03/21 09:45 DCW (Rec: 01/03/21 10:28 DCW [id number]) Hot Pack/Cold Pack Treatment Cold Pack Location R knee Patient Position Hooklying Treatment Duration (minutes) 10 PT-OP-T Assessment and Plan Start: 12/27/20 10:33 Freq: Status: Active Protocol: Document 01/03/21 09:45 DCW (Rec: 01/03/21 10:28 DCW [id number]) Physical Therapy Assessment Impairments Impairments Activity Tolerance,Functional Activities,Functional Mobility ,Gait,Pain,ROM,Soft Tissue Mobility,Strength,Tone Goals Three Impairment Pt completes TUG in average time of 14.84 seconds Short Term Goal (STG) Pt to perform TUG in less than 11 seconds in order to display decreased falls risk STG Duration 01/10/21 Two Impairment Pt unable to lift R LE against gravity Short Term Goal (STG) Pt to demonstrate at least 3/5 MMT in R LE by performing a supine SLR to show improved quad strength, which decreases UE reliance during gait STG Duration Met One Impairment Pt presents with antalgic gait using a 4WW that is too short Short Term Goal (STG) Pt to ambulate 200' without antalgia using a properly sized 4WW STG Duration Met Assessment Summary Assessment Pt doing very well at this point in her recovery, showed flexion of 106 degrees today. Pt demonstrated good quality gait with both SPC and trekking poles, will likely be transitioning away from her FWW over the next week. Pt will be discharged from skilled therapy at this time, as she is returning to her regular PT clinic for continued care. Physical Therapy Plan Frequency and Duration Frequency of Treatment 2x/Week Duration of Treatment Three weeks Plan of Care Start Date 12/27/20 Plan of Care End Date 01/17/21 Therapeutic Interventions Therapeutic Interventions Balance Training,Gait Training ,Home Exercise Program,Joint Mobilizations,Manual Therapy, Neuromuscular Re-education, Patient/Caregiver Education, Self-Care/Home Management,Soft Tissue Mobilization, Therapeutic Activities, Therapeutic Exercises Modalities Cold Pack/Ice Massage,Electric Stimulation,Hot Packs Discharge Physical Therapy Discharge Reasons Patient Request Next Visit Focus/Plan Next Note Type Discharge Summary
== END 2021-01-06 08:26 | disposition home or self-care (01) ==
LOC: PHYS 09:45
PROVIDERS: Family Provider Internal Medicine; PCP Internal Medicine; Referring Provider Orthopaedic Surgery; Visit Provider Orthopaedic Surgery
DX: M17.11 Unilateral primary osteoarthritis, right knee (principal); R26.89 Other abnormalities of gait and mobility; M62.81 Muscle weakness (generalized)
CPT/HCPCS: 97010; 97110; 97116; 97161

== ENCOUNTER → 2025-03-15 06:54 | Outpatient (CLI) | payer MEDICARE, SELFPAY ==
[2023-12-16 15:26] VITALS: BMI 22.1
[2025-03-15 08:32] LABS: Alanine Aminotransferase 19 IU/L (<35); Albumin 4.2 g/dL (3.5-5.0); Albumin Globulin Ratio 1.7 (1.0-2.8); Alkaline Phosphatase 92 U/L (38-126); Blood Urea Nitrogen 15 mg/dL (7-17); Calcium 9.3 mg/dL (8.4-10.2); Carbon Dioxide 27 mmol/L (22-32); Chloride 104 mmol/L (98-107); Cholesterol 237 mg/dL (140-199); Estimated Glomerular Filt Rate > 60 mL/min (>60); Globulin 2.5 g/dL (1.7-4.1); Glucose 87 mg/dL (70-99); HDL Cholesterol 82 mg/dL (40-60); HEMOLYSIS < 15 (0-50); Potassium 4.3 mmol/L (3.4-5.1); Sodium 138 mmol/L (137-145); Total Protein 6.7 g/dL (6.3-8.2); Triglycerides 123 mg/dL (35-150)
[2025-03-15 09:02] LABS: TSH w/ Reflex to FT4 3.04 uIU/mL (0.47-4.68)
== END ==
PROVIDERS: Family Provider Internal Medicine; PCP Internal Medicine; Referring Provider Internal Medicine; Visit Provider Internal Medicine
DX: E03.9 Hypothyroidism, unspecified (principal); Z78.0 Asymptomatic menopausal state; Z13.1 Encounter for screening for diabetes mellitus; Z13.6 Encounter for screening for cardiovascular disorders
CPT/HCPCS: 36415; 80053; 80061; 84443